=== PATIENT | female | born 1980 | race American Indian/Alaskan Native ===

== ENCOUNTER 2021-04-20 11:05 | Outpatient (CLI) | payer BC | END 2021-04-20 11:06 | disposition home or self-care (01) | LOC: MAMMO 11:05 | PROVIDERS: ATTEND Family Medicine | DX: Z12.31 Encounter for screening mammogram for malignant neoplasm of breast (principal) | CPT/HCPCS: 77067 ==

== ENCOUNTER 2021-06-19 11:26 | Outpatient (CLI) | payer BC ==
--- NOTE | 2021-06-19 14:17 | Mammography Report ---
LEFT DIGITAL DIAGNOSTIC MAMMOGRAM WITH CAD , 06/19/2021 LEFT LIMITED BREAST ULTRASOUND CLINICAL INFORMATION / INDICATION: Patient returns for evaluation of abnormal finding in the left [place] ast on recent screening mammogram. TECHNIQUE: Digital left mammographic imaging was performed. Spot compression views were obtained. [place] it ultrasound was performed. This examination was interpreted with the benefit of Computer-Aided De tection (CAD) analysis. COMPARISON: Recent mammogram 04/20/2021 and prior mammogram 04/07/2020 FINDINGS: Breast Density: There are scattered areas of fibroglandular density. MAMMOGRAPHIC FINDINGS: Spot compression views confirm the presence of a 1.1 cm oval partially well-ci rcumscribed mass in the left breast at 4:00, posterior depth. ULTRASOUND FINDINGS: Targeted ultrasound evaluation was performed of the area of interest. Sonograp hic evaluation of the lateral left breast demonstrates an oval smoothly marginated mass in the 3:00 p osition, 9 cm from nipple, measuring 1.0 cm in greatest diameter. There is suggestion of central echo genicity suggestive of fatty hilum related to possible lymph node. Overall, the appearance is suggest magui of a benign finding. However, as this was not present on the 2020 mammogram, 6 month follow-up le ft breast ultrasound is recommended to confirm stability. IMPRESSION: Probably benign finding. Recommend 6 month follow-up mammogram of the left breast establi sh stability of highly likely benign mass at 3:00. Follow up recommendation: Short term follow up in 6 months. BI-RADS Category 3: PROBABLY BENIGN. Followup in 6 months. A "normal" or negative report should not discourage follow up or biopsy of a clinically significant f inding. A written summary of these findings will be mailed to the patient. The patient will be entered into a mammography reporting system which will generate a reminder letter for the patient's next appointmen t at the appropriate interval. According to the [employer], yearly mammograms are recommended starting at age 40 and continuing as long as a woman is in good health. Breast MRI is recommended for women with an erinn roximately 20-25% or greater lifetime risk of breast cancer, including women with a strong family his tory of breast or ovarian cancer and women who have been treated for Hodgkin's disease. Signer Name: Niya Crane MD Signed: 06/19/2021 2:12 PM Workstation Name: [id number]
== END 2021-06-19 11:27 | disposition home or self-care (01) ==
LOC: US 11:26
PROVIDERS: ATTEND Family Medicine
DX: R92.8 Other abnormal and inconclusive findings on diagnostic imaging of breast (principal); N63.21 Unspecified lump in the left breast, upper outer quadrant; R92.2 Inconclusive mammogram